=== PATIENT | male | born 1975 | race Two or more races ===

== ENCOUNTER 2024-05-16 23:36 | Emergency (ER) | payer OTHER ==
[~2024-05-16] VITALS: Ht 175.3 cm; Wt 79.8 kg
[2024-05-17] MEDS ORDERED: HALOPERIDOL LACTATE 5 MG/ML AMPUL IM STA (02:19)
[2024-05-17] MEDS ORDERED: KETOROLAC TROMETHAMINE 30 MG VIAL IV STA (02:19)
[2024-05-17] MEDS ORDERED: DIPHENHYDRAMINE HCL 50 MG/ML VIAL 1ML IM STA (02:20)
== END 2024-05-17 06:48 | disposition home or self-care (01) ==
LOC: ER 23:38
DX: G43.909 Migraine, unspecified, not intractable, without status migrainosus (principal); Z88.6 Allergy status to analgesic agent